=== PATIENT | male | born 1970 | race Caucasian/White ===

== ENCOUNTER → 2016-09-15 | Outpatient (CLI) | payer OTHER ==
[~2016-09-15] MED LIST: CEPH500C PO; LAMO150T32 PO
--- NOTE | 2016-09-15 13:37 | DIAGNOSTIC IMAGING REPORT ---
RIGHT SHOULDER MIN 2 VIEWS ROUTINE CLINICAL HISTORY: Right shoulder pain COMPARISON: None. DISCUSSION: No fractures or dislocations are visualized. There are no visible periarticular calcifications. There is no evidence for soft tissue swelling. IMPRESSION: No fractures or dislocations identified. No erosive or destructive changes are visualized Electronically signed by: Rolan Rodriguez M.D. 09/15/2016 1:35 PM Dictated Date/Time: 09/15/2016 1:35 PM
[2016-09-15 14:37] LABS: BLOOD UREA NITROGEN 14 mg/dl (7-18); CALCIUM 9.1 mg/dl (8.5-10.1); CARBON DIOXIDE 27 mmol/L (21-32); CHLORIDE 106 mmol/L (98-107); CREATININE 0.86 mg/dl (0.60-1.40); GLUCOSE 88 mg/dl (70-99); POTASSIUM 4.5 mmol/L (3.5-5.1); SODIUM 139 mmol/L (136-145)
== END | disposition home or self-care (01) ==
LOC: C.RAD 13:05
PROVIDERS: ATTEND Family Medicine
DX: M25.511 Pain in right shoulder (principal)

== ENCOUNTER 2016-11-01 14:38 | Emergency (ER) | payer SELFPAY ==
[~2016-11-01] VITALS: Ht 177.8 cm; Wt 85.5 kg
[~2016-11-01 14:38] MED LIST changes: -LAMO150T32 PO
[2016-11-01 14:44] VITALS: BP 135/91; TEMP 36.6; Ht 177.8 cm; Wt 85.5 kg
--- NOTE | 2016-11-01 15:08 | EMERGENCY ROOM VISIT NOTE ---
ED Visit Note First contact with patient: 14:53 CHIEF COMPLAINT: Scalp laceration HISTORY OF PRESENT ILLNESS: This 45-year-old male patient presents to the emergency department ambulatory after cutting the right parietal scalp. The patient states that he had scaffolding set up and accidentally walked into it. He did not fall to the ground. The corner caught his scalp and caused a small laceration. The bleeding has stopped. Denies weakness or numbness of the arms. The patient denies any pain. The patient denies any other injuries. The patient' s Tetanus shot is up to date. REVIEW OF SYSTEMS: A 6 system review of systems was completed with positives and pertinent negatives listed in the HPI. ALLERGIES: Seafood MEDICATIONS: Lomotil, ibuprofen PMH: Bipolar disorder SOCIAL HISTORY: The patient is employed. PHYSICAL EXAM: Vital Signs: Reviewed Nurse's notes, vital signs stable. GENERAL : This is a 45-year-old male, in no acute distress, well-developed, well- nourished. SKIN: There is a 2.5 cm long laceration on the parietal aspect of the scalp. The edges gape apart with traction. There is no foreign material in the wound and it looks clean. There is minimal bleeding. No deep structures such as tendons, bones, or nerves are seen in the base of the wound. Normal strength and movement of the arms and legs. Capillary refill less than 2 seconds. Normal sensation to light and sharp touch. EMERGENCY DEPARTMENT COURSE: I examined the patient. Using sterile technique the wound was cleaned with Betadine. The area was sterilely draped. The wound was cleaned with saline. The laceration was repaired using 3 sharonda with the wound edges being well approximated. The patient tolerated the procedure well. The bleeding stopped. The area was cleaned with sterile saline and dressed with bacitracin ointment and bandage. The patient was discharged home in good condition. Current/Historical Medications Scheduled Cephalexin Monohydrate (Keflex), 500 MG PO QID Miscellaneous Medications None (Patient States No Home Meds) Allergies Uncoded Allergies: SEAFOOD (Allergy, Unknown, ., 10/19/16) Vital Signs Date Time Temp Pulse Resp B/P Pulse Ox O2 Delivery O2 Flow Rate FiO2 11/01/16 14:44 36.6 87 16 135/91 96 Room Air Departure Information Impression Primary Impression: Laceration of scalp Dispostion Home / Self-Care Condition GOOD Referrals Dion Flores III, CRNP (PCP) Patient Instructions ED Head Injury Closed, My [facility] Additional Instructions Read head injury handout and return for any symptoms. Keep wound clean and dry. Do not allow any crusting or dried blood to accumulate on sharonda. If this occurs, use a 1:1 solution of hydrogen peroxide/water on a Q-tip to clean the wound. Use an antibiotic ointment for 3-4 days, then let wound dry. Staple removal in 8 days. Return sooner for any signs of infection (increasing redness, swelling, drainage). Ice and elevate for swelling and pain. Tylenol 1000 mg every 6 hrs for pain. Keep covered when in sun until sharonda removed then SPF 50 or higher for one year. Vitamin E oil if desired two weeks after staple removal for reduction of scar. Problem Qualifiers Primary Impression: Laceration of scalp Encounter type: initial encounter Qualified Codes: S01.01XA - Laceration without foreign body of scalp, initial encounter
[2016-11-01] MEDS ORDERED: LAMO150T32 PO (15:13)
[2016-11-01 15:34] VITALS: PULSE 74; O2SAT 97
== END 2016-11-01 15:34 | disposition home or self-care (01) ==
LOC: C.EDB 14:41 → C.EDD 15:34
DX: S01.01XA Laceration without foreign body of scalp, initial encounter (principal); W22.8XXA Striking against or struck by other objects, initial encounter; Y99.0 Civilian activity done for income or pay; F31.9 Bipolar disorder, unspecified

== ENCOUNTER 2016-11-13 14:31 | Emergency (ER) | payer SELFPAY ==
[~2016-11-13] VITALS: Ht 180.3 cm; Wt 86.7 kg
[~2016-11-13 14:31] MED LIST changes: -CEPH500C PO; +LAMO150T32 PO
[2016-11-13 14:44] VITALS: BP 125/79; PULSE 73; TEMP 36.9; O2SAT 96; Ht 180.3 cm; Wt 86.7 kg
--- NOTE | 2016-11-13 14:56 | EMERGENCY ROOM VISIT NOTE ---
ED Visit Note First contact with patient: 14:49 CHIEF COMPLAINT: Staple removal HISTORY OF PRESENT ILLNESS: This 45-year-old male patient returns to the ED today for removal of sharonda that were placed 12 days ago. There has been no swelling, redness, or drainage from the wound. The patient feels like the laceration is healing well. REVIEW OF SYSTEMS: A 6 system review of systems was completed with positives and pertinent negatives listed in the HPI. PMH: Unchanged from previous visit. ALLERGIES: Seafood PHYSICAL EXAM: Vital Signs: Reviewed Nurse's notes, vital signs stable. GENERAL : This is a 45-year-old male, in no acute distress. SKIN: There is a stapled wound on the scalp with no signs of infection. There is no erythema, swelling, or tenderness. EMERGENCY DEPARTMENT COURSE: 3 sharonda were removed without any difficulty and there was no separation of the wound edges. The patient was discharged home in good condition. DIAGNOSIS: Healing laceration and staple removal DISCHARGE INSTRUCTIONS AND TREATMENT: Wash any remaining crusts off of the wound today and resume your normal activities. Current/Historical Medications Scheduled Lamotrigine (Lamictal), 150 MG PO DAILY Allergies Uncoded Allergies: SEAFOOD (Allergy, Severe, THROAT AND EARS SWELL, 11/13/16) Vital Signs Date Time Temp Pulse Resp B/P Pulse Ox O2 Delivery O2 Flow Rate FiO2 11/13/16 14:44 36.9 73 18 125/79 96 Room Air Departure Information Impression Primary Impression: Encounter for removal of sharonda Dispostion Home / Self-Care Condition [employer] Referrals Dion Flores III, CRNP (PCP) Patient Instructions My [facility] Additional Instructions Wash any remaining crusts off of the wound today and resume your normal activities.
== END 2016-11-13 15:02 | disposition home or self-care (01) ==
LOC: C.EDB 14:32 → C.EDD 15:02
DX: S01.01XA Laceration without foreign body of scalp, initial encounter (principal); W22.8XXA Striking against or struck by other objects, initial encounter

== ENCOUNTER 2017-12-20 13:57 | Emergency (ER) | payer SELFPAY ==
[~2017-12-20] VITALS: Ht 182.9 cm; Wt 85.4 kg
[~2017-12-20 13:57] MED LIST changes: +LAMO150T PO; -LAMO150T32 PO
[2017-12-20 14:12] VITALS: TEMP 36.7; Ht 182.9 cm; Wt 85.4 kg
[2017-12-20] MEDS ORDERED: CANNULA ONE (14:57)
[2017-12-20] MEDS ORDERED: BENZOCAIN/TETRACA/BUTAM SPRAY 200 APPLN/20 GM SPRY ONE (14:59)
[2017-12-20] MEDS ORDERED: HYDR-5688 PO (15:15)
[2017-12-20] MEDS ORDERED: PENI500T2 PO (15:15)
--- NOTE | 2017-12-20 15:16 | EMERGENCY ROOM VISIT NOTE ---
ED Visit Note First contact with patient: 14:16 CHIEF COMPLAINT: Dental infection x one month HISTORY OF PRESENT ILLNESS: Patient is an otherwise healthy 47-year-old male who presents the emergency department for evaluation of a dental abscess. He has not had symptoms on and off for a month. His symptoms started after he had a cleaning about a year and a half ago. He developed an infection in the left upper central incisor. He was later told that he would need a root canal on this tooth. He was treated with antibiotics and his symptoms improved slightly , he has intermittently developed swelling and fluid in the roof of his mouth behind the incisor. He does not have dental insurance at this time and is unable to afford the interventions previously discussed. He complains of a throbbing pain in the tooth and swelling along his gumline. The fluid accumulating on the roof of his mouth comes and goes. It never drains. He states that he developed increased pain and pressure behind the left upper central incisor over the last couple of days. He has taken Tylenol without relief. He denies any fever or facial swelling. REVIEW OF SYSTEMS: Review of systems as per HPI. All other systems reviewed were negative. 10 systems reviewed. Electronic medical records are reviewed and summarized as above/below. See Problem List. PMH: Electronic medical records are reviewed and summarized as above/below. See Problem List. SOCIAL HISTORY: Patient lives at home with his family. PHYSICAL EXAM: Vital Signs: Reviewed Nurse's notes. CONSTITUTIONAL: Patient is a well-appearing 47-year-old male who is awake and alert and in no acute distress. Vital signs are stable. EARS: Tympanic membranes intact, not inflamed, have normal contour. External canals clear. MOUTH: Overall the patient has fair dentition. The left upper central incisor is tender to palpation, no gross instability. There is slight swelling along the gumline, and fullness in the roof of his mouth, behind the central incisors that is tender and fluctuant. Mucous membranes moist, no lesions, tongue and gums appear normal. THROAT: No pharyngeal injection, exudates, or tonsillar hypertrophy. Airway is patent. No trismus noted. FACE: No facial swelling is appreciated. No cellulitic changes. NECK: No lymphadenopathy. . ED course: The patient was seen and assessed as above. He has a suspected abscess on the roof of his mouth behind a decayed left upper central incisor. He would like the area drained. He has been on antibiotics previously which have been ineffective in treating the area. He would like to proceed with I&D today. The patient's mouth was rinsed with saline. The area in question was anesthetized with Cetacaine spray, and incised with an 11 blade. Drainage was mostly bloody in nature, I tried to manually decompress it with pressure but the patient was not able to tolerate any real attempts at this. He rinsed his mouth with saline. He was encouraged to continue rinsing the mouth and that the area will likely decompress on its own. He will also be placed on Pen-Vee K , and was given a small prescription for Dingle for pain. He does not have any evidence for facial cellulitis or Kiet's angina at this time. He is aware that he will need to see the dentist for definitive management. Medication reconciliation: I attest that I have personally reviewed the patient' s current medication list. Blood pressure screening : Patient was found to have normal blood pressure on screening and does not require follow-up. Patient was reviewed in the [facility] Prescription Drug Monitoring Program, and there were no red flags noted. Problem List Medical Problems: (1) Asthma Status: Chronic (2) Encounter for removal of sharonda Status: Resolved (3) Laceration Status: Resolved (4) Laceration of scalp Status: Resolved Current/Historical Medications Scheduled Penicillin V Potassium (Veetids), 500 MG PO QID Scheduled PRN Hydrocodone/Acetaminophen 5MG/325MG (Dingle 5MG/325MG), 1-2 TABLETS PO Q4 PRN for Pain Allergies Uncoded Allergies: SEAFOOD (Allergy, Severe, THROAT AND EARS SWELL, 11/13/16) Vital Signs Date Time Temp Pulse Resp B/P (MAP) Pulse Ox O2 Delivery O2 Flow Rate FiO2 12/20/17 15:33 64 16 133/90 97 12/20/17 14:12 36.7 77 20 143/83 98 Room Air Departure Information Impression Primary Impression: Dental abscess Prescriptions Hydrocodone/Acetaminophen 5MG/325MG (Dingle 5MG/325MG) Tab 1-2 TABLETS PO Q4 Y for Pain, #20 TAB For Initial Treatment Prov: Yuliya Amaya PA 12/20/17 Penicillin V Potassium (VEETIDS) 500 Mg Tab 500 MG PO QID, #40 TAB Prov: Yuliya Amaya PA 12/20/17 Referrals No Doctor, Assigned (PCP) Patient Instructions My [facility] Additional Instructions Penicillin 500mg: Take one pill four times daily for 10 days for your dental infection. All antibiotics can cause diarrhea. If this occurs and you feel worse or it does not resolve in 1-2 days follow up with your doctor or return to the Emergency Department as this could be signs of serious underlying problems. Any medication can cause an allergic reaction, stop the pills immediately and return to the ER for rash, hives, breathing difficulties, or swelling. Ibuprofen(Motrin, Advil) may be used for fever or pain. Use 600mg every six hours as needed. Take with food. Avoid using more than 2400mg in a 24 hour period. Do not use 2400mg per day for more than three consecutive days without physician direction. Prolonged inappropriate use can lead to stomach upset or ulcers. (AND/OR) Acetaminophen(Tylenol) may be used for fever or pain. Use 1000mg every six hours as needed. Avoid using more than 4000mg in a 24 hour period. Hydrocodone/Acetaminophen (Dingle) 5/325 mg: Take 1-2 pills every four hours for breakthrough pain. Avoid alcohol, operating machinery or dangerous equipment, working on ladders or roofs, DRIVING, or situations where being under the influence may be dangerous. It is recommended to use an [id number] stool softener such as Colace, 100mg twice daily while taking this medication to avoid constipation. Saltwater gargles after meals and before bedtime. Soft foods. Orajel/Anbesol/clove oil as needed for discomfort. Followup with your dentist for definitive management. You may also follow up with your primary care physician for pain/care management until you can be seen by your dentist.
[2017-12-20 15:33] VITALS: BP 133/90; PULSE 64; O2SAT 97
== END 2017-12-20 15:35 | disposition home or self-care (01) ==
LOC: C.EDB 13:58 → C.EDD 15:35
DX: K04.7 Periapical abscess without sinus (principal); J45.909 Unspecified asthma, uncomplicated; Z91.013 Allergy to seafood